=== PATIENT | female | born 1970 | race African-American/Black ===

== ENCOUNTER 2020-11-20 00:15 | Emergency (ER) | payer SELFPAY ==
[2020-11-20] MEDS ORDERED: Lidocaine 1% (PF) 30 ML VIAL ONE (02:09)
[2020-11-20] MEDS ORDERED: Lidocaine 1% PF 5 ML VIAL ONE (02:10)
[2020-11-20] MEDS ORDERED: Morphine 4 MG/ML VIAL ONE (02:24)
== END 2020-11-20 03:25 | disposition home or self-care (01) ==
LOC: ERS 00:15
DX: K04.7 Periapical abscess without sinus (principal); Z79.899 Other long term (current) drug therapy; E11.9 Type 2 diabetes mellitus without complications; I10 Essential (primary) hypertension
CPT/HCPCS: 41800; 96372; J2001; J2270